=== PATIENT | female | born 1990 | race Caucasian/White ===

== ENCOUNTER 2020-10-31 20:40 | Emergency (ER) | payer OTHER ==
[~2020-10-31] VITALS: Ht 175.3 cm; Wt 70.9 kg
--- NOTE | 2020-10-31 21:46 | NUR ---
ERP AT BEDSIDE
--- NOTE | 2020-10-31 21:57 | NUR ---
XRAY AT BEDSIDE
[2020-10-31 22:19] LABS: TROPONIN I < 0.015 ng/mL (0.000-0.045)
[2020-10-31 23:15] VITALS: BP 112/65
--- NOTE | 2020-10-31 23:15 | NUR ---
Patient given discharge instructions and they have confirmed that they understand the instructions. Patient ambulatory with steady gait.
== END 2020-10-31 23:22 | disposition home or self-care (01) ==
LOC: ED 21:20
DX: R07.2 Precordial pain (principal); R42 Dizziness and giddiness
CPT/HCPCS: 36415; 71045; 84484; 93005; 99285